=== PATIENT | male | born 1985 | race Two or more races ===

== ENCOUNTER 2016-05-02 09:08 | Emergency (ER) | payer OTHER ==
[2016-05-02] MEDS ORDERED: MAALOX/LIDO2%VISC/SIMETHICONE 40 ML BOT ONE (09:26)
--- NOTE | 2016-05-02 10:06 | RAD ---
Exam: Two-view chest COMPARISON: 09/02/2013 INDICATION: Chest pain. FINDINGS: PA and lateral views of the chest were obtained. Cardiac silhouette is within normal limits. Lungs are normally inflated. There is no focal airspace disease or pleural effusion. Previously described right upper lobe opacity is no longer seen. Bones of the chest wall within normal limits. IMPRESSION: Negative two-view chest.
== END 2016-05-02 10:25 | disposition home or self-care (01) ==
LOC: ED 09:08
DX: R07.9 Chest pain, unspecified (principal)
CPT/HCPCS: 71020; 99283; 93005; 99284; A9270